=== PATIENT | female | born 1980 | race Caucasian/White ===

== ENCOUNTER 2024-02-12 21:49 | Emergency (ER) | payer SELFPAY ==
[~2024-02-12] VITALS: Ht 165.1 cm; Wt 92.7 kg
[~2024-02-12 21:49] MED LIST: AMOXICILLIN500 MG PO; ANAPROX DS550 MG PO; BACTRIM DS 8001 TA1 PO; CIPROFLOXACIN500 MG PO; CLARITIN10 MG PO; CORTISPORIN 1%-10 M1 OT; DIFLUCAN150 MG PO; EPI EZ PEN1 MG/ML IM; KEFLEX500 MG PO; MEDROL DOSEPAK4 MG PO; MOTRIN800 MG PO; NAPROSYN500 MG PO; NKHM; TRIMOX500 MG PO; ULTRAM50 MG PO; VOLTAREN50 M1 PO; ZITHROMAX Z PA250 MG PO
[2024-02-12] MEDS ORDERED: hydrALAZINE hydrochloride 20 MG/ML VIAL IV ONE (22:15)
[2024-02-12 22:28] LABS: BASO # 0.1 10*3/uL (0.0-0.1); BASO % 0.6 % (0.0-1.0); EOS # 0.2 10*3/uL (0.0-0.4); EOS % 1.8 % (1.0-4.0); HEMATOCRIT 41.6 % (37.0-47.0); MEAN CELL VOLUME 82.7 fl (81.0-99.0); MEAN CORPUSCULAR HGB 26.4 pg (27.0-31.0); MEAN PLATELET VOLUME 8.7 fl (9.6-12.3); MONO # 0.8 10*3/uL (0.1-1.0); MONO % 7.6 % (3.0-9.0); NEUT # 6.8 10*3/uL (2.3-7.9); NEUT % 67.3 % (47.0-73.0); PLATELET COUNT AUTOMATED 353 10*3/uL (130-400); RED BLOOD COUNT 5.03 10*6/uL (4.10-5.10); RED CELL DISTRI WIDTH 15.9 % (0-14.5); WHITE BLOOD COUNT 10.1 10*3/uL (4.8-10.8)
[2024-02-12 22:48] LABS: BUN 8 mg/dl (9-23); CHLORIDE 104 mmol/L (98-107); POTASSIUM 3.4 mmol/L (3.4-5.1)
[2024-02-12 23:06] VITALS: BP 150/80
[2024-02-12] MEDS ORDERED: LISINOPRIL10 M1 PO (23:13)
[2024-02-12] MEDS ORDERED: ACETAMINOPHEN 325 MG TAB PO ONE (23:15)
== END 2024-02-12 23:25 | disposition home or self-care (01) ==
LOC: ED 21:49
PROVIDERS: Physician Assistant Medical
DX: I16.0 Hypertensive urgency (principal); R51.9 Headache, unspecified; R11.0 Nausea; E78.5 Hyperlipidemia, unspecified; Z88.5 Allergy status to narcotic agent; Z88.8 Allergy status to other drugs, medicaments and biological substances; Z98.890 Other specified postprocedural states; Z98.51 Tubal ligation status

== ENCOUNTER 2024-04-02 01:29 | Emergency (ER) | payer OTHER ==
[~2024-04-02] VITALS: Ht 165.1 cm; Wt 90.7 kg
[~2024-04-02 01:29] MED LIST changes: +LISINOPRIL10 M1 PO
[2024-04-02 01:39] VITALS: BP 184/84
[2024-04-02] MEDS ORDERED: LIPITOR10 MG PO (01:43)
[2024-04-02] MEDS ORDERED: MELOXICAM15 MG PO (07:16)
== END 2024-04-02 07:22 | disposition home or self-care (01) ==
LOC: ED 01:29
DX: S90.32XA Contusion of left foot, initial encounter (principal); I10 Essential (primary) hypertension; F17.200 Nicotine dependence, unspecified, uncomplicated; Z98.51 Tubal ligation status; Z88.5 Allergy status to narcotic agent; X58.XXXA Exposure to other specified factors, initial encounter; Y93.89 Activity, other specified; Y92.89 Other specified places as the place of occurrence of the external cause; Y99.8 Other external cause status

== ENCOUNTER → 2024-05-20 | Outpatient (CLI) | payer OTHER ==
[~2024-05-20] MED LIST changes: +LIPITOR10 MG PO; +MELOXICAM15 MG PO
== END | disposition home or self-care (01) ==
LOC: RESCLI 13:00
PROVIDERS: ATTEND Internal Medicine
DX: I10 Essential (primary) hypertension (principal); E78.5 Hyperlipidemia, unspecified; Z29.9 Encounter for prophylactic measures, unspecified; Z79.899 Other long term (current) drug therapy; Z88.8 Allergy status to other drugs, medicaments and biological substances

== ENCOUNTER → 2024-06-14 | Outpatient (CLI) | payer OTHER | END | disposition home or self-care (01) | LOC: MAMMO 15:52 | PROVIDERS: ATTEND Internal Medicine | DX: Z12.31 Encounter for screening mammogram for malignant neoplasm of breast (principal); Z29.9 Encounter for prophylactic measures, unspecified ==